=== PATIENT | female | born 1945 | race Caucasian/White ===

== ENCOUNTER 2019-01-01 04:48 | Day surgery (SDC) | payer OTHER, BC | END 2019-01-01 14:55 | disposition home or self-care (01) | LOC: JASU-SURG 04:48 ==

== ENCOUNTER 2021-03-16 07:59 | Inpatient (IN) | payer OTHER, BC ==
[2021-03-12 13:58] VITALS: BMI 23.0
[2021-03-16] MEDS ORDERED: CEFAZOLIN 2 GM in DEXTROSE 5%-WATER - 50 ML IVPB ONE (08:06)
[2021-03-16] MEDS ORDERED: CELECOXIB 200 MG CAPSULE PO ONE ×2 (08:06→08:49)
[2021-03-16] MEDS ORDERED: TRANEXAMIC ACID 1000 MG/10 ML VIAL IVPUSH ONE (08:06)
[2021-03-16] MEDS ORDERED: MIDAZOLAM HCL 2 MG/2 ML SINGLE DOSE VIAL ONE (10:05)
[2021-03-16] MEDS ORDERED: BUPIVACAINE HCL/PF 0.5% (5 MG/ML) 30 ML VIAL IJ ONE (10:05)
[2021-03-16] MEDS ORDERED: LIDOCAINE HCL/PF 2% SDV 5ML VIAL ONE (10:09)
[2021-03-16] MEDS ORDERED: VANCOMYCIN 1,000 MG VIAL (RESTRICTED TO ID ONLY) ONE (10:43)
[2021-03-16] MEDS ORDERED: ceFAZolin SODIUM 1 GM VIAL ONE ×2 (10:43→11:19)
[2021-03-16] MEDS ORDERED: MAG HYDROX/AL HYDROX/SIMETH 30 ML UNIT-DOSE CUP PO PRN (11:18)
[2021-03-16] MEDS ORDERED: ONDANSETRON 4 MG/2 ML VIAL IVPUSH PRN ×2 (11:18→13:03)
[2021-03-16] MEDS ORDERED: DEXAMETHASONE SOD PHOSPHATE 4 MG/1 ML VIAL ONE (11:19)
[2021-03-16] MEDS ORDERED: PROPOFOL 20 ML ONE ×2 (11:29)
[2021-03-16] MEDS ORDERED: LACTATED RINGERS SOLUTION 1,000 ML IV SCH (11:30)
[2021-03-16] MEDS ORDERED: TRANEXAMIC ACID 1000 MG/10 ML VIAL ONE (11:46)
[2021-03-16] MEDS: ACETAMINOPHEN 1000 MG/100 ML VIAL (NON FORMULARY) IVPB ONE (13:00)
[2021-03-16] MEDS ORDERED: oxyCODONE HCL 5 MG TABLET PO PRN ×2 (13:03)
[2021-03-16] MEDS: CEFAZOLIN 2 GM/D5W 2 GM/50 ML ML IVPB SCH (18:35)
[2021-03-16] MEDS: ACETAMINOPHEN 500 MG TABLET (FP) PO SCH (20:21)
[2021-03-16] MEDS: SENNOSIDES/DOCUSATE COMBO (SENNA PLUS) TABLET (UD) PO SCH (21:06)
[2021-03-16] MEDS: ATORVASTATIN CA 10 MG TABLET (FP) PO SCH (21:06)
[2021-03-17] MEDS: ACETAMINOPHEN 500 MG TABLET (FP) PO SCH ×4 (01:15→21:27)
[2021-03-17] MEDS: CEFAZOLIN 2 GM/D5W 2 GM/50 ML ML IVPB SCH (01:15)
[2021-03-17] MEDS: ACETAMINOPHEN 1000 MG/100 ML VIAL (NON FORMULARY) IVPB ONE (07:20)
[2021-03-17] MEDS: ASPIRIN 325 MG TABLET PO SCH (07:45)
[2021-03-17 07:53] LABS: HEMATOCRIT 37.3 % (32.4-45.2); MCH 29.8 pg (25.7-33.7); MCHC 32.1 g/dl (32.0-36.0); MEAN CELL VOLUME 92.9 fl (80-96); MEAN PLT VOLUME 7.8 fl (7.5-11.1); PLATELET COUNT 158 10^3/uL (134-434); RBC 4.01 M/mm3 (3.60-5.2); RDW 13.3 % (11.6-15.6); WHITE BLOOD COUNT 8.3 K/mm3 (4.0-10.8)
[2021-03-17] MEDS: MULTIVITAMINS (DAILY MVI) TABLET (FP) PO SCH (09:02)
[2021-03-17] MEDS: SENNOSIDES/DOCUSATE COMBO (SENNA PLUS) TABLET (UD) PO SCH ×2 (09:03→21:27)
[2021-03-17] MEDS: PANTOPRAZOLE 40 MG TABLET PO SCH (09:03)
[2021-03-17] MEDS: POLYETHYLENE GLYCOL (HEALTHYLAX) 3350 17 GM PACKET PO SCH (09:11)
[2021-03-17] MEDS ORDERED: POLYETHYLENE GLYCOL 3350 119 GM BTL PO SCH (10:00)
[2021-03-17] MEDS ORDERED: LOCK ITEM NR ONE (19:27)
[2021-03-17] MEDS: ATORVASTATIN CA 10 MG TABLET (FP) PO SCH (21:27)
[2021-03-18] MEDS: ACETAMINOPHEN 500 MG TABLET (FP) PO SCH ×2 (02:00→10:08)
[2021-03-18 06:37] VITALS: PULSE 81
[2021-03-18 07:48] LABS: HEMATOCRIT 38.4 % (32.4-45.2); HEMOGLOBIN 12.5 GM/dl (10.7-15.3); MCH 30.3 pg (25.7-33.7); MCHC 32.6 g/dl (32.0-36.0); MEAN CELL VOLUME 92.9 fl (80-96); PLATELET COUNT 157 10^3/uL (134-434); RBC 4.13 M/mm3 (3.60-5.2); RDW 13.3 % (11.6-15.6); WHITE BLOOD COUNT 9.6 K/mm3 (4.0-10.8)
[2021-03-18] MEDS: ASPIRIN 325 MG TABLET PO SCH (10:08)
[2021-03-18] MEDS: SENNOSIDES/DOCUSATE COMBO (SENNA PLUS) TABLET (UD) PO SCH (10:09)
[2021-03-18] MEDS: PANTOPRAZOLE 40 MG TABLET PO SCH (10:09)
[2021-03-18] MEDS: POLYETHYLENE GLYCOL (HEALTHYLAX) 3350 17 GM PACKET PO SCH (10:09)
[2021-03-18] MEDS: MULTIVITAMINS (DAILY MVI) TABLET (FP) PO SCH (10:09)
[2021-03-18 10:13] VITALS: BP 116/50; TEMP 98.3
== END 2021-03-18 13:00 | disposition home health service (06) | DRG 470 ==
LOC: FM/S 07:59
PROVIDERS: ADMIT Orthopaedic Surgery; ATTEND Orthopaedic Surgery
PROC: 8E0YXCZ Robotic Assisted Procedure of Lower Extremity (ICD-10-PCS; 2021-03-16)
PROC: 0SR90JA Replacement of Right Hip Joint with Synthetic Substitute, Uncemented, Open Approach (ICD-10-PCS; principal; 2021-03-16 11:30)
DX: M16.11 Unilateral primary osteoarthritis, right hip (principal)
CPT/HCPCS: 36415; 73502-TC-RT-FY; 85027; 94760; 97010-GP; 97116-GP; 97163-GP; J0131

== ENCOUNTER 2022-04-26 04:30 | Day surgery (SDC) | payer OTHER, BC ==
[2022-04-22 16:27] VITALS: BMI 24.3
[2022-04-26] MEDS ORDERED: KETAMINE HCL 200 MG/20 ML VIAL ONE (07:04)
[2022-04-26] MEDS ORDERED: TETRACAINE/BENZOCAINE/BUTAMBEN 20 GM SPR TP ONE (07:10)
[2022-04-26 09:02] VITALS: TEMP 98
[2022-04-26 10:39] VITALS: BP 125/90; PULSE 64; RESP 20
== END 2022-04-26 10:00 | disposition home or self-care (01) ==
LOC: JASU-ENDO 04:30
PROVIDERS: ATTEND Internal Medicine Gastroenterology
PROC: 0DBL8ZX Excision of Transverse Colon, Via Natural or Artificial Opening Endoscopic, Diagnostic (ICD-10-PCS; principal; 2022-04-26 08:00)
DX: Z12.11 Encounter for screening for malignant neoplasm of colon (principal); D12.3 Benign neoplasm of transverse colon; K64.8 Other hemorrhoids; Z86.010 Personal history of colon polyps
CPT/HCPCS: 88305-TC; 88342-TC

== ENCOUNTER 2023-10-12 05:11 | Day surgery (SDC) | payer OTHER, BC ==
[2023-10-10 10:01] VITALS: BMI 25.7
[2023-10-12 10:54] VITALS: TEMP 97.3
[2023-10-12 12:37] VITALS: BP 122/60; PULSE 64; RESP 14
== END 2023-10-12 11:25 | disposition home or self-care (01) ==
LOC: JASU-ENDO 05:11
PROVIDERS: ATTEND Internal Medicine Gastroenterology
PROC: 0DB78ZX Excision of Stomach, Pylorus, Via Natural or Artificial Opening Endoscopic, Diagnostic (ICD-10-PCS; 2023-10-12)
PROC: 0DB68ZX Excision of Stomach, Via Natural or Artificial Opening Endoscopic, Diagnostic (ICD-10-PCS; 2023-10-12)
PROC: 0DB98ZX Excision of Duodenum, Via Natural or Artificial Opening Endoscopic, Diagnostic (ICD-10-PCS; principal; 2023-10-12 10:00)
DX: K29.50 Unspecified chronic gastritis without bleeding (principal); B96.81 Helicobacter pylori [H. pylori] as the cause of diseases classified elsewhere; K31.7 Polyp of stomach and duodenum
CPT/HCPCS: 88305-TC; 88342-TC